=== PATIENT | male | born 1980 | race Two or more races ===

== ENCOUNTER 2023-11-09 13:12 | Emergency (ER) | payer OTHER ==
[2023-11-09 14:01] VITALS: RESP 18
[2023-11-09] MEDS: LIDOCAINE 1% INJ 10MG/ML (20 ML MDV) SQ ONE (14:08)
[2023-11-09] MEDS: DIPH,PERTUS(ACELL)TETVAC-LF 0.5 ML VIAL IM ONE (14:08)
--- NOTE | 2023-11-09 14:10 | ED ---
Wound/Laceration HPI - General Chief Complaint: Wound/Laceration Stated Complaint: Laceration on L index finger Time Seen by Provider: 11/09/23 13:20 Source: patient, RN notes reviewed Mode of arrival: ambulatory Limitations: no limitations - History of Present Illness Initial Comments: 43-year-old male presents emergency department with chief complaint of laceration to his left index finger. 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 He states he has a laceration unsure when his last tetanus was. There is a laceration distal portion of his left index finger - Related Data Previous Rx's Medication Instructions Recorded Cephalexin [Keflex] 500 mg PO Q6HR #28 cap 11/09/23 Allergies Allergy/AdvReac Type Severity Reaction Status Date / Time No Known Allergies Allergy Verified 11/09/23 13:26 Review of Systems ROS Statement: Those systems with pertinent positive or pertinent negative responses have been documented in the HPI. ROS Other: All systems not noted in ROS Statement are negative. Past Medical History Past Medical History: No Reported History Additional Past Medical History / Comment(s): diverticulitis History of Any Multi-Drug Resistant Organisms: None Reported Past Surgical History: No Surgical Hx Reported Past Psychological History: No Psychological Hx Reported Smoking Status: Current every day smoker Past Alcohol Use History: Daily Past Drug Use History: None Reported General Exam Limitations: no limitations General appearance: alert, in no apparent distress Head exam: Present: atraumatic, normocephalic, normal inspection Respiratory exam: Present: normal lung sounds bilaterally. Absent: respiratory distress, wheezes, rales, rhonchi, stridor Cardiovascular Exam: Present: regular rate, normal rhythm, normal heart sounds. Absent: systolic murmur, diastolic murmur, rubs, gallop, clicks Extremities exam: Present: other (Left hand second digit distal portion 2 cm laceration just proximal to the nail) Course Vital Signs 11/09/23 13:24 Temperature 98 F Pulse Rate 78 Respiratory 18 Rate Blood Pressure 163/78 O2 Sat by Pulse 98 Oximetry Procedures - Laceration Laceration #1 Consent Obtained: verbal consent Indication: laceration Site: hand (Left hand second digit) Size (cm): 2 Description: avulsion (nail), irregular Depth: simple, single layer Anesthetic Used: lidocaine 1%, without epi Anesthesia Technique: local infiltration Amount (mls): 3 Pre-repair: wound explored, irrigated extensively Type of Sutures: nylon Size of Sutures: 4-0 Number of Sutures: 4 Technique: simple, interrupted Patient Tolerated Procedure: well, no complications Medical Decision Making - Medical Decision Making Was pt. sent in by a medical professional or institution (ZACK Watson, STUDENT OFFICER, urgent care, hospital, or intermediate...) When possible be specific @ -No Did you speak to anyone other than the patient for history (EMS, parent, family, police, friend...)? What history was obtained from this source @ -No Did you review nursing and triage notes (agree or disagree)? Why? @ -I reviewed and agree with nursing and triage notes Were old charts reviewed (outside hosp., previous admission, EMS record, old EKG, old radiological studies, urgent care reports/EKG's, intermediate records)? Report findings @ -No old charts were reviewed Differential Diagnosis (chest pain, altered mental status, abdominal pain women, abdominal pain men, vaginal bleeding, weakness, fever, dyspnea, syncope, headache, dizziness, GI bleed, back pain, seizure, CVA, palpatations, mental health, musculoskeletal)? @ -Finger laceration, finger fracture EKG interpreted by me (3pts min.). @ -None X-rays interpreted by me (1pt min.). @ -X-ray hand second digit finger shows distal phalanx fracture CT interpreted by me (1pt min.). @ -None done U/S interpreted by me (1pt. min.). @ -None done What testing was considered but not performed or refused? (CT, X-rays, U/S, labs)? Why? @ -None What meds were considered but not given or refused? Why? @ -None Did you discuss the management of the patient with other professionals (professionals i.e. ZACK Watson, STUDENT OFFICER, lab, RT, psych nurse, social professionals, skin care therapist, teacher, collection officer, pillowcase maker)? Give summary @ -No Was smoking cessation discussed for >3mins.? @ -No Was critical care preformed (if so, how long)? @ -No Were there social determinants of health that impacted care today? How? (Homelessness, low income, unemployed, alcoholism, drug addiction, transportation, low edu. Level, literacy, decrease access to med. care, fdc, rehab)? @ -No Was there de-escalation of care discussed even if they declined (Discuss DNR or withdrawal of care, Hospice)? DNR status @ -No What co-morbidities impacted this encounter? (DM, HTN, Smoking, COPD, CAD, Cancer, CVA, ARF, Chemo, Hep., AIDS, mental health diagnosis, sleep apnea, morbid obesity)? @ -None Was patient admitted / discharged? Hospital course, mention meds given and route, prescriptions, significant lab abnormalities, going to OR and other pertinent info. @ -Discharge patient presented for laceration to his left hand second digit patient has associated fracture. Patient was given Adacel, Ancef. Patient was discharged on Keflex patient was placed in a finger splint after suturing and will follow-up with orthopedic surgeon. Undiagnosed new problem with uncertain prognosis? @ -No Drug Therapy requiring intensive monitoring for toxicity (Heparin, Nitro, Insulin, Cardizem)? @ -No Were any procedures done? @ -Laceration repair Diagnosis/symptom? @ -Finger fracture, laceration Acute, or Chronic, or Acute on Chronic? @ -Acute Uncomplicated (without systemic symptoms) or Complicated (systemic symptoms)? @ -Uncomplicated Side effects of treatment? @ -No Exacerbation, Progression, or Severe Exacerbation? @ -No Poses a threat to life or bodily function? How? (Chest pain, [place], [place], pneumonia, PE, COPD, DKA, ARF, appy, cholecystitis, CVA, Diverticulitis, Homicidal, Suicidal, threat to staff... and all critical care pts) @ -No Disposition Clinical Impression: Fracture of finger of left hand, Laceration of finger Disposition: HOME SELF-CARE Condition: Stable Instructions (If sedation given, give patient instructions): Finger Fracture (ED), Finger Laceration (ED) Additional Instructions: Have sutures removed in 10 to 14 days. Please return to the Emergency Department if symptoms worsen or any other concerns. Prescriptions: Cephalexin [Keflex] 500 mg PO Q6HR #28 cap Is patient prescribed a controlled substance at d/c from ED?: No Referrals: Deepthi Messina DO [Primary Care Provider] - 1-2 days Vincent Taylor DO [Doctor of Osteopathic Medicine] - 1-2 days Time of Disposition: 15:02
--- NOTE | 2023-11-09 14:34 | XR ---
EXAMINATION TYPE: XR finger LT DATE OF EXAM: 11/09/2023 2:21 PM CLINICAL INDICATION:Male, 43 years old with history of laceration; [facility] COMPARISON: None TECHNIQUE: 3 views of the left index finger. FINDINGS: Osseous mineralization appears appropriate. No destructive bony lesion. Acute. Fracture through the m id shaft of the distal phalanx, with extension of fracture lines distally to the tuft. There is mild displacement of fracture fragments, and mild apex dorsal angulation at the fracture site. There is vaguely linear increased attenuation seen extending through the soft tissues at the level of the fracture, potentially due to blood products but other slightly hyperdense material could be pres ent. Please correlate clinically. This also includes a rounded appearing structure up to 4.75 mm in d iameter which appears relatively superficial at the palmar medial aspect of the distal phalanx. IMPRESSION: Acute fracture of the distal phalanx of the index finger with soft tissue findings as above.
[2023-11-09] MEDS: ceFAZolin 1,000 MG VIAL (IM USE) IM STA (14:38)
[2023-11-09] MEDS: BACITRACIN OINT 1 EACH PACKET TOPICAL ONE (15:05)
[2023-11-09 15:15] VITALS: BP 134/68; PULSE 80; TEMP 98.3
== END 2023-11-09 15:13 | disposition home or self-care (01) ==
LOC: EC 13:12
DX: S61.211A Laceration without foreign body of left index finger without damage to nail, initial encounter (principal); F17.200 Nicotine dependence, unspecified, uncomplicated; Z23 Encounter for immunization; X58.XXXA Exposure to other specified factors, initial encounter
CPT/HCPCS: 73140; 90715; 12001; 99283; 96372; 90471; J0690; J2001